=== PATIENT | female | born 1975 | race Caucasian/White ===

== ENCOUNTER 2020-04-12 15:30 | Outpatient (RCR) | payer BC, OTHER, SELFPAY ==
--- NOTE | 2020-02-13 09:06 | PTOPEVAL ---
Thank you for referring Trenton Calloway to [facility]. Please review, sign, date and return this plan of care LEONARDO. Pt referred to therapy due to left knee pain. She demonstrates LE weakness with increased pain with functional movement. Recommend additional PT 2x/wk x 6 wk to achieve goals. I agree with and certify that the following plan of care is medically necessary. 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 She felt this was due to increased sitting. Her dog ran into her knee in December 2019 with increased pain. She reports increased pain with squating, walking longer distances and steps. Pain is lateral aspect of knee with sharp pain. She walks her dog daily. She does a fitness program at home , plus occasional swimming. Pain Assessment Timing of Pain Assessment Timing of Pain Assessment Assessment Pain Scale Pain Scale Used Numeric (1 - 10) Self Report Pain Assessment Left Knee(s) Reported Pain Level 1 Pain Description Sharp,Tender on Palpation Pain Frequency Continuous Lowest Pain Intensity 1 Greatest Pain Intensity 4 Pain Relief Interventions Used By Ice Patient Pain Score Pain Score 1: Self Report Lower Extremity Range of Motion General Lower Extremity Range of Motion Reason Not Measured WNL/Left,WNL/Right Lower Extremity Muscle Strength Testing Hip Strength Right Hip Flexion Strength 4+ Good + Hip Extension Strength 4- Good - Hip Abduction Strength 3+ Fair + Left Hip Flexion Strength 4+ Good + Hip Extension Strength
--- NOTE | 2020-03-11 16:36 | PTOPEVAL ---
Thank you for referring Trenton Calloway to [facility].? The patient is scheduled to be seen for therapy? 2 x/week for 3 weeks. Please review, sign, date and return this plan of care LEONARDO. I agree with and certify that the following plan of care is medically necessary. Referring Physician Date Admitting Provider: Attending Provider: Dr. 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 Subjective Information She reports her left knee is Query Text:As Reported By Patient/ feeling better. She reports a Family progression of right foot/heel pain that is greater in the morning. She reports clicking of lateral/inf patella region, but denies the sharp pain. she cont to have left knee swelling that cont to increase on days she has prolonged sitting for work. She cont to have increased pain with squating, walking longer distances and steps, but may not be as intense when therapy started. Pain Assessment Timing of Pain Assessment Timing of Pain Assessment Re-assessment Pain Scale Pain Scale Used Numeric (1 - 10) Self Report Pain Assessment Left Knee(s) Reported Pain Level 2 Pain Description Aching Pain Frequency Intermittent Lowest Pain Intensity 0 Greatest Pain Intensity 6 Pain Score Pain Score 2: Self Report Lower Extremity Muscle Strength Testing Hip Strength Right Hip Flexion Strength 5 Normal Hip Extension Strength 5 Normal Hip Abduction Strength 4- Good - Left Hip Flexion Strength 5 Normal Hip Extension Strength
--- NOTE | 2020-04-12 16:35 | PTOPEVAL ---
Thank you for referring Trenton Calloway to [facility].? Pt has been seen for 14 therapy visits to address left knee pain. She has improved with her pain, performance with functional task, and soft tissue restrictions. She has reached maximal potential with skilled therapy services at this time. She is indep with her HEP. DC skilled therapy services at this time with pt to f/u with her doctor regarding the swelling in the knee. Please review, sign, date and return this plan of care LEONARDO. I agree with and certify that the following plan of care is medically necessary. Referring Physician Date Referring Provider: Dr. 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 Subjective Information Reports increased left knee Query Text:As Reported By Patient/ swelling with increased Family standing and walking with shopping and multiple getting and out of the car this weekend with shopping. Also has the swelling with prolonged sitting for work. She cont to have right foot/ heel pain that is constant. She reports improved clicking of lateral/inf patella region. She cont to have increased pain with squating, getting on /off the ground. Reports improved knee discomfort as she walk longer distances. Pain Assessment Timing of Pain Assessment Timing of Pain Assessment Re-assessment Pain Scale Pain Scale Used Numeric (1 - 10) Self Report Pain Assessment Left Knee(s) Reported Pain Level 3 Pain Description Sharp Pain Frequency Intermittent Lowest Pain Intensity 0 Greatest Pain Intensity 3 Pain Aggravating Factors Walking Pain Score Pain Score 3: Self Report Lower Extremity Muscle Strength Testing Hip Strength Right Hip Flexion Strength 5 Normal Hip Extension Strength 5 Normal Hip Abduction Strength 3+ Fair + Left Hip Flexion Strength 5 Normal Hip Extension Strength
== END 2020-04-13 10:23 | disposition home or self-care (01) ==
LOC: ANHPT 15:30
PROVIDERS: PCP Family Medicine
DX: M22.2X2 Patellofemoral disorders, left knee (principal)
CPT/HCPCS: 97035; 97110; 97112; 97140; 97161; 97530

== ENCOUNTER → 2020-09-20 11:26 | Outpatient (CLI) | payer BC, OTHER, SELFPAY ==
[2020-09-20 21:05] LABS: SARS-CoV-2 RNA PCR Negative
== END ==
PROVIDERS: PCP Family Medicine; Visit Provider Physician Assistant
DX: R68.89 Other general symptoms and signs (principal); Z20.822 Contact with and (suspected) exposure to COVID-19
CPT/HCPCS: C9803; U0003; U0005

== ENCOUNTER → 2021-01-19 10:44 | Outpatient (CLI) | payer BC, OTHER, SELFPAY ==
--- NOTE | ~2021-01-19 | MM_ITS ---
EXAMINATION: MM screening [facility] BI w jaspreet HISTORY: Screening mammogram TECHNIQUE: Craniocaudal and mediolateral oblique 3-D tomosynthesis images were obtained and synthetic 2-D images were generated. CAD analysis was submitted and interpreted. COMPARISON: 09/26/2018, 09/17/2017 BREAST PARENCHYMAL COMPOSITION: There are scattered areas of fibroglandular density. FINDINGS: There is no evidence of suspicious mass, calcification, or architectural distortion to sugg est malignancy in either breast. There has been no suspicious interval change. IMPRESSION: 1. No mammographic evidence of malignancy. 2. Recommend routine screening mammography in one year. BI-RADS Category 1: Negative Reviewed, dictated and finalized at location A.
== END ==
PROVIDERS: PCP Family Medicine; Visit Provider Obstetrics & Gynecology
DX: Z12.31 Encounter for screening mammogram for malignant neoplasm of breast (principal)
CPT/HCPCS: 77063; 77067

== ENCOUNTER 2022-05-20 08:44 | Emergency (ER) | payer BC, OTHER, SELFPAY ==
[2022-05-20 08:55] VITALS: BP 147/77; PULSE 122; RESP 16; TEMP 37.2; O2SAT 98
--- NOTE | 2022-05-20 09:10 | ED.URI ---
HPI - URI/Sore Throat General Chief Complaint: Upper Respiratory Infection Stated Complaint: sore throat,chest tightness Time Seen by Provider: 05/20/22 09:10 Source: patient, RN notes reviewed and old records reviewed Mode of arrival: ambulatory Limitations: no limitations History of Present Illness HPI Narrative: 46-year-old female presents to the [facility] with not feeling well since , woke up with sore throat this morning. Reports 101 fever this morning, Took some ibuprofen. Patient is not fluid nor COVID vaccinated. No history of having COVID. Related Data Allergies Allergy/AdvReac Type Severity Reaction Status Date / Time Sulfa (Sulfonamide Allergy Unknown Unknown Verified 12/30/20 13:24 Antibiotics) Review of Systems Review of Systems: All systems reviewed & are unremarkable except as noted in HPI and below Constitutional: Constitutional: Reports no additional constitutional complaints, Denies chills and Denies fever(s) Eyes: Eyes: Reports no additional eye complaints ENT: Reports as per HPI, Reports nasal congestion and Reports sore throat Cardiovascular: Cardiovascular: Reports no additional cardiovascular complaints Respiratory: Respiratory: Reports as per HPI, Reports chest congestion and Reports dyspnea Gastrointestinal: Gastrointestinal: Reports no additional gastrointestinal complaints Musculoskeletal: Musculoskeletal: Reports no additional musculoskeletal complaints Integumentary/Breasts: Skin/Breast: Reports system reviewed and no additional complaints, except as docu Neurologic: Reports system reviewed and no additional complaints, except as documented Psychiatric: Psychiatric: Reports no additional psychiatric complaints Allergic/Immunologic: Allergic/Immunologic: Reports no additional allergic/immunologic complaints PMFSH Past Medical History Medical History (Updated 05/20/22 @ 09:29 by Renetta Johnston APRN) Patient denies medical problems Surgical History Surgical History History of intraocular lens implant History of right cataract surgery History of wisdom tooth extraction Hx of detached retina repair Family History Family History Sibling Asthma Hypertension Depression Mother Patient's mother is in good health Depression Hypertension Father COPD (chronic obstructive pulmonary disease) Grandparent Breast cancer Other Brain tumor Other Family history of Alzheimer's disease Social History Social History Second hand tobacco smoke exposure: No Alcohol intake: current Substance use: never Substance use type: does not use Gender identity (if verbalized by the patient): Female Comments At the time of my signature, I reviewed and agree with the nursing past medical, surgical, social, and family history. There is no relevant family history pertinent to the patient complaint. Exam Const: General: comfortable, no acute distress, well developed, alert, ill appearing acutely (mild) and well nourished Nutritional Appearance: well nourished Orientation/consciousness: patient oriented x3 Limitations: no limitations HENMT: Head: normal to inspection Ears: external ears normal, TM's normal bilaterally and EAC's normal Face/Nose/Sinus: Normal external nose present and Normal nares present Face and sinus: normal facial exam and sinuses nontender Mouth: Yes Normal oral and palatal mucosa present, Yes lip normal and Yes moist mucous membranes Throat: posterior oropharynx normal and uvula midline Eyes: General: appearance normal, both eyes and all related structures Conjunctivae: conjunctivae normal Pupils: Equal, round and reactive pupils present Neck: Neck: normal visual inspection, full ROM, no lymphadenopathy and no meningeal signs Chest: Chest palpation & inspection: normal ins
== END 2022-05-20 09:36 | disposition home or self-care (01) ==
PROVIDERS: Emergency Provider Nurse Practitioner; PCP Family Medicine
DX: J10.1 Influenza due to other identified influenza virus with other respiratory manifestations (principal); Z20.822 Contact with and (suspected) exposure to COVID-19; Z98.41 Cataract extraction status, right eye; Z96.1 Presence of intraocular lens; Z28.310 Unvaccinated for COVID-19
CPT/HCPCS: 87081; 87426; 87804; 87880; 99213; C9803; G0463

== ENCOUNTER → 2023-02-16 07:12 | Outpatient (CLI) | payer BC, SELFPAY ==
--- NOTE | ~2023-02-16 | MM_ITS ---
EXAMINATION: MM screening [facility] BI w jaspreet HISTORY: Screening mammogram TECHNIQUE: Craniocaudal and mediolateral oblique 3-D tomosynthesis images were obtained and synthetic 2-D images were generated. CAD analysis was submitted and interpreted. COMPARISON: 01/19/2021, 09/26/2018, 09/17/2017 BREAST PARENCHYMAL COMPOSITION: There are scattered areas of fibroglandular density. FINDINGS: No suspicious mass, calcification, or architectural distortion are identified in either bahman ast to suggest malignancy. There has been no suspicious interval change. IMPRESSION: 1. No mammographic evidence of malignancy. 2. Recommend routine screening mammography in one year. BI-RADS Category 1: Negative Reviewed, dictated and finalized at location A.
== END ==
PROVIDERS: PCP Obstetrics & Gynecology; Visit Provider Obstetrics & Gynecology
DX: Z12.31 Encounter for screening mammogram for malignant neoplasm of breast (principal)
CPT/HCPCS: 77063; 77067

== ENCOUNTER 2024-11-07 08:30 | Emergency (ER) | payer BC, SELFPAY ==
--- OUTSIDE RECORDS SUMMARY | 2024-11-08 14:05 | XMS_ITS | Referral Summary ---
Author Organization [facility] Address [address] [place] [id number] Care Team Providers Care Linker Up Name Role Phone Natalie Wheatley MD Primary Care Provider Allergies Active Allergy Reactions Criticality Noted Date Comments Sulfamethoxazole Vomiting Low 01/26/2020 Medications indomethacin SR (INDOCIN SR) 75 mg CR capsule TAKE 1 CAPSULE (75 MG TOTAL) BY MOUTH DAILY WITH BREAKFAST 30 capsule 0 Active Active Problems No known active problems Social History Tobacco Use Types Packs/Day Years Used Date Smoking Tobacco: Never Smokeless Tobacco: Never Personal Safety Answer Date Recorded Getting School Help Needed Not on file 09/22 Comments Unknown Sex and Gender Information Value Date Recorded Sex Assigned at Not on file Legal Sex Female 10:47 AM CDT Gender Identity Not on file Sexual Orientation Not on file Last Filed Vital Signs Vital Sign Reading Time Taken Comments Blood Pressure - - Pulse - - Temperature - - Respiratory Rate - - Oxygen Saturation - - Inhaled Oxygen Concentration - - Weight 83 kg (183 lb) 01/26/2020 11:06 AM CDT Height 162.6 cm (5' 4 ) 01/26/2020 11:06 AM CDT Body Mass Index 31.41 01/26/2020 11:06 AM CDT Plan of Treatment Not on file Insurance [employer] Member Subscriber Plan / Payer (Ef fective 2016-Present) Name:Trenton Calloway Relation to Subscriber:Self Name:Trenton Calloway Payer ID:[id number] (NAIC) Group ID:[id number] Type: ALLIANCE Address: [address] CHOICE PLUS Care Teams Linker Up Relationship Specialty Start Date End Date Natalie Wheatley MD [address] [facility] [address] [place] [address] PCP - General Family Medicine 01/23/20
--- OUTSIDE RECORDS SUMMARY | 2024-11-08 14:05 | XMS_ITS | Clinical Summary ---
Author Organization [facility] Address [address] [place] [address] Care Team Providers Care Event Decorator And Designer Name Role Phone Natalie Wheatley MD Primary Care Provider [phone] Social History Tobacco Use Types Packs/Day Years Used Date Smoking Tobacco: Never Assessed Comments Unknown Sex and Gender Information Value Date Recorded Sex Assigned at Not on file Legal Sex Female 5:13 PM CDT Gender Identity Not on file Sexual Orientation Not on file Plan of Treatment Health Maintenance Due Date Last Done Comments DTAP/TDAP/TD VACCINES (1 - Tdap) 12/09/1995 HEPATITIS B VACCINES (1 of 3 - 19+ 3-dose series) 12/09/1995 HPV/Cotest (21-29) 1997 HPV/Cotest (30-65) 2006 CERVICAL CANCER SCREENING 06/26/2019 PAP SMEAR 06/26/2019 06/26/2016 BREAST CANCER SCREENING 09/27/2019 09/27/19 19, 09/26/2018, 09/17/2017, Additional history exists COLORECTAL SCREENING 2021 Colorectal Cancer Screening 2021 FIT-DNA Q 3 years 2021 FIT/FOBT Q 1 year 2021 Flex Sig/CT Colonography Q 5 years 2021 INFLUENZA VACCINE (#1) 2024 Care Teams Event Decorator And Designer Relationship Specialty Start Date End Date Natalie Wheatley MD PCP - General Family Practice 10/06/20
--- OUTSIDE RECORDS SUMMARY | 2024-11-08 14:05 | XMS_ITS | Clinical Summary ---
Author Organization [facility] Address [facility] [place] [address] Care Team Providers Care Gradall Operator Name Role Phone Natalie Wheatley MD Primary Care Provider Allergies Active Allergy Reactions Criticality Noted Date Comments Sulfamethoxazole Vomiting Low 01/26/2020 Medications indomethacin SR (INDOCIN SR) 75 mg CR capsule TAKE 1 CAPSULE (75 MG TOTAL) BY MOUTH DAILY WITH BREAKFAST 30 capsule 0 Active Active Problems No known active problems Surgical History Surgery Date Site/Laterality Comments RETINA SURGERY Social History Tobacco Use Types Packs/Day Years Used Date Smoking Tobacco: Never Smokeless Tobacco: Never Personal Safety Answer Date Recorded Getting School Help Needed Not on file 09/22 Comments Unknown Sex and Gender Information Value Date Recorded Sex Assigned at Not on file Legal Sex Female 10:47 AM CDT Gender Identity Not on file Sexual Orientation Not on file Obstetrics History Last Filed Vital Signs Vital Sign Reading [...] Treatment Not on file Insurance [employer] [facility] CHOICE PLUS Care Teams Gradall Operator Relationship Specialty Start Date End Date Natalie Wheatley MD [address] [facility] [address] [place] [address] PCP - General Family Medicine 01/23/20
--- OUTSIDE RECORDS SUMMARY | 2024-11-08 14:05 | XMS_ITS | Continuity of Care Document ---
Author Organization [facility] Address [address] [facility] [address] [place] [address] Phone Care Team Providers Care Senior Back End Java Developer Name Role Phone Guilherme Kessler MD, FACS Unavailable Unavailab le Advance Directives Directive Yes / No Effective Date File Name No Information Encounters Encounter Description Practice Location Reason(s) For Visit Diagnoses Date Provider Providers Copied on Encounter [facility], [address], [place], [place], [id number], [place] tel:[phone] SEC Jovanni Ricardo No Information [address] [address] [address], [address], [place], [place], [id number], [place]. tel:[phone] Family History Family Member Type Diagnosis Age At Onset No Information Payers Payer name Insurance type Covered alliance party ID Authoriza tion(s) No Information Social History Type Description Quantity Date Captured Comments Sex Female Smoking Status No Information Chief Complaint And Reason For Visit No Information Reason For Referral Reason For Referral No Information History Of Present Illness Encounter Date Complaint History Of Prese nt Illness No Information Functional Status Date Functional Assessmen t No Information Instructions Date Instruction Additional Infor mation No Information Assessments Type Assessment Date No Information Patient Care Teams Name Effective Dates (start - stop) Status Members No Information
--- OUTSIDE RECORDS SUMMARY | 2024-11-08 14:05 | XMS_ITS | Clinical Summary ---
Author Organization [facility] Address [address] [place] [address] Phone [phone] Care Team Providers Care Telescope Operator Name Role Phone Unavailable Primary Care Provider Unavailabl e Social History Tobacco Use Types Packs/Day Years Used Date Smoking Tobacco: Never Assessed Comments Unknown Sex and Gender Information Value Date Recorded Sex Assigned at Not on file Legal Sex Female 7:32 PM EDT Gender Identity Not on file Sexual Orientation Not on file Plan of Treatment Health Maintenance Due Date Last Done Comments Annual Preventative Visit (APV) 1976 CT Colonography 1976 Cologuard Stool Test 1976 Colonoscopy 1976 Colorectal Cancer Screening 1976 FIT-DNA 1976 FIT 1976 FOBT 1976 Sigmoidoscopy 1976 Pap Smear 1997 Cervical Cancer Screening 2006 HPV/Cotest 2006 Mammogram 2016 Influenza Vaccine (Season Ended) 2025 Meningococcal B Vaccine Aged Out No l onger eligible based on patient's age to complete this topic Insurance BS
--- OUTSIDE RECORDS SUMMARY | 2024-11-08 14:05 | XMS_ITS | Referral Summary ---
Author Organization [facility] Address [address] [place] [address] Phone [phone] Care Team Providers Care Booking Police Officer Name Role Phone Unavailable Primary Care Provider Unavailabl e Social History Tobacco Use Types Packs/Day Years Used Date Smoking Tobacco: Never Assessed Comments Unknown Sex and Gender Information Value Date Recorded Sex Assigned at Not on file Legal Sex Female 7:32 PM EDT Gender Identity Not on file Sexual Orientation Not on file Plan of Treatment Not on file Insurance [facility]
--- OUTSIDE RECORDS SUMMARY | 2024-11-10 13:37 | XMS_ITS | Clinical Summary ---
Author Organization [facility] Address [address] [place] [phone] Phone [phone] Care Team Providers Care Cooler Tender Name Role Phone Unavailable Primary Care Provider [...]
--- OUTSIDE RECORDS SUMMARY | 2024-11-10 13:37 | XMS_ITS | Continuity of Care Document ---
Author Organization [facility] Address [address] [facility] [address] [place] [address] Phone Care Team Providers Care Database Marketing Specialist Name Role Phone Guilherme Kessler MD, FACS Unavailable Unavailab le Advance Directives Directive Yes / No Effective Date File Name No Information Encounters Encounter Description Practice Location Reason(s) For Visit Diagnoses Date Provider Providers Copied on Encounter [facility], [address] [facility], [place], [place], [id number], [place] tel:[phone] SEC Jovanni Ricardo No Information [address] [address] [place] [employer] [facility], [address], [place], [place], [id number], [place]. tel:[phone] Family History Family Member Type Diagnosis Age At Onset No Information Payers Payer name Insurance type Covered constitution party ID Authoriza tion(s) No Information Social [...]
--- OUTSIDE RECORDS SUMMARY | 2024-11-10 13:37 | XMS_ITS | Referral Summary ---
Author Organization [facility] Address [address] [place] [address] Phone [phone] Care Team Providers Care Training And Development Director Name Role Phone Unavailable Primary Care Provider Unavailabl e Social History Tobacco Use Types Packs/Day Years Used Date Smoking Tobacco: Never Assessed Comments Unknown Sex and Gender Information Value Date Recorded Sex Assigned at Not on file Legal Sex Female 7:32 PM EDT Gender Identity Not on file Sexual Orientation Not on file Plan of Treatment Not on file Insurance [facility]
--- OUTSIDE RECORDS SUMMARY | 2024-11-10 13:37 | XMS_ITS | Clinical Summary ---
Author Organization [facility] Address [address] [place] [address] Care Team Providers Care Television Maintenance Worker Name Role Phone Natalie Wheatley MD Primary Care Provider [phone] Social History Tobacco Use Types Packs/Day Years [...] 2021 INFLUENZA VACCINE (#1) 2024 Care Teams Television Maintenance Worker Relationship Specialty Start Date End Date Natalie Wheatley MD PCP - General Family Practice 10/06/20
== END 2024-11-07 09:15 ==
PROVIDERS: Emergency Provider Registered Nurse
DX: J06.9 Acute upper respiratory infection, unspecified (principal); J02.9 Acute pharyngitis, unspecified
CPT/HCPCS: 87081; 99213; G0463